=== PATIENT | female | born 1930 | race Caucasian/White ===

== ENCOUNTER → 2019-10-15 | Outpatient (REF) | payer MEDICARE, BC | LOC: M LAB REF 17:51 | PROVIDERS: ATTEND Physician Assistant | DX: C44.310 Basal cell carcinoma of skin of unspecified parts of face (principal) | CPT/HCPCS: 11102; 17000; 17110; 88305; G0463 ==

== ENCOUNTER → 2019-12-10 | Outpatient (REF) | payer MEDICARE, BC | LOC: M LAB REF 11:00 | PROVIDERS: ATTEND Dermatology | DX: C44.319 Basal cell carcinoma of skin of other parts of face (principal) ==